=== PATIENT | female | born 1945 | race Caucasian/White ===

== ENCOUNTER 2021-12-19 06:25 | Day surgery (SDC) | payer MEDICARE ==
[2021-12-19] MEDS ORDERED: LACTATED RINGERS 1,000 ML IV ONE ×2 (06:28→07:52)
[2021-12-19] MEDS ORDERED: PROPARACAINE 0.5% OPHTH DROPS 15 ML ONE (06:31)
[2021-12-19] MEDS ORDERED: PHENYLEPHRINE 2.5% OPHTH 2 ML DROPS ONE (06:31)
[2021-12-19] MEDS ORDERED: CYCLOPENTOLATE 1% OPHTH DROPS 2 ML ONE (06:31)
[2021-12-19] MEDS ORDERED: KETOROLAC 0.45% OPHTH DROPS ONE (06:31)
[2021-12-19] MEDS ORDERED: EPINEPHrine 1 MG/ML AMP ONE (07:03)
[2021-12-19] MEDS ORDERED: TRIAMCIN/MOXIFLOX OPHTHALMIC 0.6 ML VIAL IO ONE ×3 (07:03→09:27)
[2021-12-19] MEDS ORDERED: TIMOLOL 0.5% OPHTH DROPS ONE (07:03)
[2021-12-19] MEDS ORDERED: BRIMONIDINE 0.2% OPHTH DROPS 5 ML ONE (07:03)
[2021-12-19] MEDS ORDERED: BSS/LIDOCAINE/EPINEPHRINE 1 ML VIAL ONE (07:04)
--- NOTE | 2021-12-19 07:17 | ANESTHESIA ---
Pre-Anesthesia VS, & Labs - Diagnosis combined senile cataract - Procedure left cataract extraction with IOL Vital Signs: Temp Pulse Resp BP Pulse Ox 36.0 C L 63 14 133/75 H 100 12/19/21 06:53 12/19/21 06:53 12/19/21 06:53 12/19/21 06:53 12/19/21 06:53 Height: 5 ft 1 in Weight (kg): 68 kg Body Mass Index: 28.3 BMI Classification: Overweight - NPO >8 hours - Is Patient ?: No - Lab Results Current Lab Results: Laboratory Tests 12/19/21 06:46: POC Whole Bld Glucose 127 H Home Medications and Allergies Home Medications: Ambulatory Orders Atorvastatin [Lipitor] 40 mg PO DAILY 12/18/21 Lisinopril [Zestril] 20 mg PO DAILY 12/18/21 Sertraline [Zoloft] 25 mg PO DAILY 12/18/21 metFORMIN [Glucophage] 500 mg PO DAILY 12/18/21 Atorvastatin [Lipitor] 40 mg PO DAILY 12/18/21 Lisinopril [Zestril] 20 mg PO DAILY 12/18/21 Sertraline [Zoloft] 25 mg PO DAILY 12/18/21 metFORMIN [Glucophage] 500 mg PO DAILY 12/18/21 Allergies/Adverse Reactions: Allergies Allergy/AdvReac Type Severity Reaction Status Date / Time codeine AdvReac Emesis Verified 12/18/21 12:15 Anes History & Medical History - Anesthetic History Anesthesia Complications: reports: No previous complications - Medical History Cardiovascular: reports: Hypertension, High cholesterol Pulmonary: reports: None Gastrointestinal: reports: None Urinary: reports: None Musculoskeletal: reports: None Endocrine/Autoimmune: reports: Type 2 diabetes Skin: reports: None Smoking Status: Never smoker - Surgical History General: reports: Colonoscopy Eyes Ears Nose Throat (EENT): reports: Tonsil/Adenoidectomy Exam General: Alert Dental: WNL Respiratory: Lungs clear Cardiovascular: Regular rate Plan Anesthesia Type: Total IV Consent for Procedure(s) Verified and Reviewed: Yes Code Status: Attempt Resuscitation ASA classification: 2-Mild systemic disease Is this case an emergency?: No
[2021-12-19] MEDS ORDERED: BRIMONIDINE 0.2% OPHTH DROPS 5 ML OPTH ONE (07:44)
[2021-12-19] MEDS ORDERED: VANCOMYCIN OPHTH (TOPICAL) 10 MG/ML SYRINGE TOP ONE (07:44)
[2021-12-19] MEDS ORDERED: BSS/LIDOCAINE/EPINEPHRINE 1 ML SYRINGE IO ONE (07:44)
[2021-12-19] MEDS ORDERED: EPINEPHrine 1 MG/ML AMP IR ONE (07:44)
[2021-12-19] MEDS ORDERED: TIMOLOL 0.5% OPHTH DROPS OPTH ONE (07:44)
[2021-12-19] MEDS ORDERED: PROPARACAINE 0.5% OPHTH DROPS 15 ML EACHEYE ONE (07:44)
--- NOTE | 2021-12-19 08:06 | OPERATIVE REPORT ---
Operative Report - Other Other Information/Narrative: Date of Surgery: 12/19/21 Preop Dx: Visually significant cataract left eye. This was the first cataract surgery. Postop Dx: Same Procedure: Phacoemulsification with posterior chamber intraocular lens implant left eye Surgeon: Dr. Luis Javier Anesthesia: Monitored anesthesia care Complications: None Operative Indications: This is a 76-year-old F with progressive vision loss in the left eye due to 1-2+ nuclear sclerotic and 3+ cortical cataract. Best corrected visual acuity was 20/30 with glare to 20/60 vision in the left eye. Indications for surgery were: - Overall decrease in vision - Difficulty reading - Difficulty seeing words, closed captions, or game scores on TV - Difficulty seeing street signs - Difficulty driving in low light or at night - Difficulty driving at night because of headlights from other vehicles - Difficulty with glare or bright lights in any situation - Difficulty with artist drawing The patient was consented at length concerning the risks and benefits of cataract surgery after which the patient expressed a desire to proceed with surgery. Operative Procedure: The patient was taken into OR#3 and placed under monitored anesthesia care. A surgical time-out was conducted confirming correct patient, correct procedure, and correct surgical site. The patient was given topical anesthesia and then prepped and draped in the usual sterile fashion. The eye was entered at the 6 and 3 oclock positions. Intracameral Shugarcaine was injected into the anterior chamber followed by a dispersive viscoelastic. A continuous-tear curvilinear capsulorhexis was performed. The nucleus was hydrodissected and phacoemulsified. The cortex was evacuated using automated infusion and aspiration. A cohesive viscoelastic was injected into the capsular bag and a 18.5 diopter intraocular lens was inserted into the bag. Infusion and aspiration were used to evacuate the viscoelastic materials from the eye. The wounds were hydrated and the eye inflated to physiologic pressure using balanced salt solution. Approximately 0.25ml of a mixture of triamcinolone and moxifloxacin was injected trans-sclerally into the vitreous in the inferotemporal quadrant using a 30 gauge cannula. An additional 0.55ml of a mixture of triamcinolone, and moxifloxacin was injected subconjunctivally in the superior quadrant for infection and inflammation prophylaxis. Wound integrity was checked with Weck-Aline sponges. The patient was taken from the operating room in good condition and given post-op instructions.
[2021-12-19 08:39] VITALS: BP 125/83
--- NOTE | 2021-12-19 09:34 | ANESTHESIA POST OP EVALUATION ---
Anesthesia Post Eval - Post Anesthesia Eval Vitals: Last Vital Signs Temp 36.2 C L 12/19/21 08:25 Pulse 65 12/19/21 08:25 Resp 16 12/19/21 08:25 BP 125/83 H 12/19/21 08:25 Pulse Ox 97 12/19/21 08:25 CV Function Including HR & BP: Stable Pain Control: Satisfactory Nausea & Vomiting: Negative Mental Status: Baseline Respiratory Status: Airway Patent Hydration Status: Satisfactory Anesthesia Complications: None
== END 2021-12-19 06:26 | disposition home or self-care (01) ==
LOC: SDS 06:25
PROVIDERS: ATTEND Ophthalmology
DX: E11.36 Type 2 diabetes mellitus with diabetic cataract (principal); H25.812 Combined forms of age-related cataract, left eye; Z79.84 Long term (current) use of oral hypoglycemic drugs
CPT/HCPCS: 66984; A9270; J3490; J7120

== ENCOUNTER 2022-02-20 06:43 | Day surgery (SDC) | payer MEDICARE ==
[~2022-02-20 06:43] MED LIST: CYCLOPENTOLATE 1% OPHTH DROPS 2 ML ONE; KETOROLAC 0.45% OPHTH DROPS ONE; PHENYLEPHRINE 2.5% OPHTH 2 ML DROPS ONE; PROPARACAINE 0.5% OPHTH DROPS 15 ML ONE
[2022-02-20] MEDS ORDERED: LACTATED RINGERS 1,000 ML IV ONE (07:02)
[2022-02-20] MEDS ORDERED: VANCOMYCIN OPHTH (TOPICAL) 10 MG/ML SYRINGE ONE (07:22)
[2022-02-20] MEDS ORDERED: BRIMONIDINE 0.2% OPHTH DROPS 5 ML ONE (07:22)
[2022-02-20] MEDS ORDERED: EPINEPHrine 1 MG/ML AMP ONE (07:22)
[2022-02-20] MEDS ORDERED: TRIAMCIN/MOXIFLOX OPHTHALMIC 0.6 ML VIAL IO ONE ×2 (07:22→08:13)
[2022-02-20] MEDS ORDERED: BSS/LIDOCAINE/EPINEPHRINE 1 ML VIAL ONE (07:22)
[2022-02-20] MEDS ORDERED: timoloL maleate 0.5% OPHTH DROPS (10ML) ONE (07:31)
--- NOTE | 2022-02-20 07:36 | ANESTHESIA ---
Pre-Anesthesia VS, & Labs - Diagnosis R senile combined cataract - Procedure R extraction cataract wIOL Vital Signs: Temp Pulse Resp BP Pulse Ox O2 Flow Rate 36 C L 52 L 16 130/69 97 02/20/22 07:02 02/20/22 07:02 02/20/22 07:02 02/20/22 07:02 02/20/22 07:02 Height: 5 ft 1 in Weight (kg): 68 kg Body Mass Index: 28.3 BMI Classification: Overweight - NPO >8 hours - Is Patient ?: No - Lab Results Current Lab Results: Laboratory Tests 02/20/22 07:11: POC Whole Bld Glucose 120 H Lab results reviewed: Yes Home Medications and Allergies Atorvastatin [Lipitor] 40 mg PO DAILY 12/18/21 Lisinopril [Zestril] 20 mg PO DAILY 12/18/21 Sertraline [Zoloft] 25 mg PO DAILY 12/18/21 metFORMIN [Glucophage] 500 mg PO DAILY 12/18/21 Allergies/Adverse Reactions: Allergies Allergy/AdvReac Type Severity Reaction Status Date / Time codeine AdvReac Emesis Verified 12/18/21 12:15 Anes History & Medical History - Anesthetic History Anesthesia Complications: reports: No previous complications Family history of Anesthesia Complications: Denies Family history of Malignant Hyperthermia: Denies - Medical History Cardiovascular: reports: Hypertension, High cholesterol Pulmonary: reports: None Gastrointestinal: reports: None Urinary: reports: None Musculoskeletal: reports: None Endocrine/Autoimmune: reports: Type 2 diabetes Skin: reports: None Smoking Status: Never smoker - Surgical History General: reports: Colonoscopy Eyes Ears Nose Throat (EENT): reports: Cataracts, Tonsil/Adenoidectomy Exam General: Alert, Oriented x3, Cooperative Plan Anesthesia Type: MAC Consent for Procedure(s) Verified and Reviewed: Yes Code Status: Attempt Resuscitation ASA classification: 2-Mild systemic disease Is this case an emergency?: No
[2022-02-20] MEDS ORDERED: MIDAZOLAM 2 MG/2 ML VIAL ONE (07:53)
[2022-02-20] MEDS ORDERED: LACTATED RINGERS IV ONE (08:08)
[2022-02-20] MEDS ORDERED: EPINEPHrine 1 MG/ML AMP IR ONE (08:13)
[2022-02-20] MEDS ORDERED: TIMOLOL 0.5% OPHTH DROPS OPTH ONE (08:13)
[2022-02-20] MEDS ORDERED: BRIMONIDINE 0.2% OPHTH DROPS 5 ML OPTH ONE (08:13)
[2022-02-20] MEDS ORDERED: BSS/LIDOCAINE/EPINEPHRINE 1 ML SYRINGE IO ONE (08:13)
[2022-02-20] MEDS ORDERED: PROPARACAINE 0.5% OPHTH DROPS 15 ML RIGHTEYE ONE (08:14)
[2022-02-20] MEDS ORDERED: VANCOMYCIN OPHTH (TOPICAL) 10 MG/ML SYRINGE TOP ONE (08:14)
--- NOTE | 2022-02-20 08:16 | OPERATIVE REPORT ---
Operative Report - Other Other Information/Narrative: Date of Surgery: 02/20/22 Preop Dx: Visually significant cataract right eye. Cataract surgery was performed in the left eye on . Postop Dx: Same Procedure: Phacoemulsification with posterior chamber intraocular lens implant right eye Surgeon: Dr. Luis Javier Anesthesia: Monitored anesthesia care Complications: None Operative Indications: This is a 77-year-old F with progressive vision loss in the right eye due to 1-2+ nuclear sclerotic and 2-3+ cortical cataract. Best corrected visual acuity was 20/30 with glare to 20/60 vision in the right eye. Indications for surgery were: - Overall decrease in vision - Difficulty seeing words, closed captions, or game scores on TV - Difficulty seeing street signs - Difficulty driving in low light or at night - Difficulty driving at night because of headlights from other vehicles - Difficulty with glare or bright lights in any situation The patient was consented at length concerning the risks and benefits of cataract surgery after which the patient expressed a desire to proceed with surgery. Operative Procedure: The patient was taken into OR#3 and placed under monitored anesthesia care. A surgical time-out was conducted confirming correct patient, correct procedure, and correct surgical site. The patient was given topical anesthesia and then prepped and draped in the usual sterile fashion. The eye was entered at the 6 and 3 oclock positions. Intracameral Shugarcaine was injected into the anterior chamber followed by a dispersive viscoelastic. A continuous-tear curvilinear capsulorhexis was performed. The nucleus was hydrodissected and phacoemulsified. The cortex was evacuated using automated infusion and aspiration. A cohesive viscoelastic was injected into the capsular bag and a 19.5 diopter intraocular lens was inserted into the bag. Infusion and aspiration were used to evacuate the viscoelastic materials from the eye. The wounds were hydrated and the eye inflated to physiologic pressure using balanced salt solution. Approximately 0.25ml of a mixture of triamcinolone and moxifloxacin was injected trans-sclerally into the vitreous in the inferotemporal quadrant using a 30 gauge cannula. An additional 0.55ml of a mixture of triamcinolone and moxifloxacin was injected subconjunctivally in the superior quadrant for infection and inflammation prophylaxis. Wound integrity was checked with Weck-Aline sponges. The patient was taken from the operating room in good condition and given post-op instructions.
[2022-02-20 08:20] VITALS: BP 115/61
--- NOTE | 2022-02-20 08:23 | ANESTHESIA POST OP EVALUATION ---
Anesthesia Post Eval - Post Anesthesia Eval Vitals: Last Vital Signs Temp 36.4 C L 02/20/22 08:08 Pulse 64 02/20/22 08:08 Resp 18 02/20/22 08:20 BP 115/61 02/20/22 08:20 Pulse Ox 96 02/20/22 08:20 O2 Flow Rate CV Function Including HR & BP: Stable Pain Control: Satisfactory Nausea & Vomiting: Negative Mental Status: Baseline Respiratory Status: Airway Patent Hydration Status: Satisfactory Anesthesia Complications: None
== END 2022-02-20 06:44 | disposition home or self-care (01) ==
LOC: SDS 06:43
PROVIDERS: ATTEND Ophthalmology
DX: E11.36 Type 2 diabetes mellitus with diabetic cataract (principal); H25.811 Combined forms of age-related cataract, right eye; Z79.84 Long term (current) use of oral hypoglycemic drugs; Z98.42 Cataract extraction status, left eye
CPT/HCPCS: 66984; A9270; J3490; J7120